=== PATIENT | female | born 2000 | race Caucasian/White ===

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

== ENCOUNTER 2018-03-20 11:43 | Emergency (ER) | payer OTHER ==
[~2018-03-20] VITALS: Ht 154.9 cm; Wt 64.4 kg
[2018-03-20] MEDS ORDERED: Prednisone20 MG PO (13:03)
== END 2018-03-20 13:06 | disposition home or self-care (01) ==
LOC: ER 11:43
DX: J20.9 Acute bronchitis, unspecified (principal); Z79.52 Long term (current) use of systemic steroids; J45.909 Unspecified asthma, uncomplicated; F17.200 Nicotine dependence, unspecified, uncomplicated
CPT/HCPCS: 71046; 99283-25

== ENCOUNTER 2018-04-02 15:27 | Emergency (ER) | payer OTHER ==
[~2018-04-02] VITALS: Ht 154.9 cm; Wt 56.7 kg
[~2018-04-02 15:27] MED LIST changes: +Prednisone20 MG PO
[2018-04-02] MEDS ORDERED: Prednisone20 MG PO (16:22)
[2018-04-02 18:45] LABS: Influenza A Negative (NEGATIVE); Influenza B Negative (NEGATIVE)
== END 2018-04-02 16:18 | disposition home or self-care (01) ==
LOC: ER 15:27
PROVIDERS: Physician Assistant
DX: J20.9 Acute bronchitis, unspecified (principal); R06.00 Dyspnea, unspecified; F32.9 Major depressive disorder, single episode, unspecified; F17.210 Nicotine dependence, cigarettes, uncomplicated
CPT/HCPCS: 87804; 99284

== ENCOUNTER 2019-03-10 19:01 | Emergency (ER) | payer OTHER | END 2019-03-10 20:18 | disposition left against medical advice (07) | LOC: ER 19:01 | DX: Z53.21 Procedure and treatment not carried out due to patient leaving prior to being seen by health care provider (principal) ==